=== PATIENT | female | born 1990 | race Caucasian/White ===

== ENCOUNTER 2019-01-08 21:00 | Emergency (ER) | payer OTHER ==
[~2019-01-08] VITALS: Ht 165.1 cm; Wt 50.0 kg
[2019-01-08] MEDS ORDERED: IBUPROFEN 600 MG TABLET PO ONE (22:30)
[2019-01-08 22:54] VITALS: BP 124/80
== END 2019-01-08 22:57 | disposition home or self-care (01) ==
LOC: EMS 21:01
DX: H66.91 Otitis media, unspecified, right ear (principal); J02.9 Acute pharyngitis, unspecified